=== PATIENT | female | born 1995 | race Two or more races ===

== ENCOUNTER 2022-11-11 21:07 | Emergency (ER) | payer OTHER ==
[~2022-11-11] VITALS: Ht 175.3 cm; Wt 113.4 kg
== END 2022-11-11 23:01 | disposition home or self-care (01) ==
LOC: ER 21:07
DX: S81.811A Laceration without foreign body, right lower leg, initial encounter (principal); W26.8XXA Contact with other sharp object(s), not elsewhere classified, initial encounter; Y93.89 Activity, other specified; Y92.89 Other specified places as the place of occurrence of the external cause; Y99.9 Unspecified external cause status